=== PATIENT | male | born 1985 | race Caucasian/White ===

== ENCOUNTER 2017-01-21 17:33 | Emergency (ER) | payer MEDICAID, OTHER ==
[2017-01-21 17:55] VITALS: BP 173/89
[2017-01-21] MEDS ORDERED: HYDROcodone/ACETAMIN 5-325 MG* 1 TAB PO ONE ×2 (18:57→20:10)
[2017-01-21] MEDS ORDERED: Phenazopyridine TAB* 100 MG PO ONE (18:57)
[2017-01-21] MEDS ORDERED: Ciprofloxacin TAB* 500 MG PO ONE (19:36)
--- NOTE | 2017-01-21 19:46 | UC ---
Abdominal Pain Male HPI - HPI Summary HPI Summary: 31 y/o male with h/o kidney stone ~ 3 years ago, passed spontaneously, presents with colicy right flank pain x ~ 2 days, no feevr, chills, pain intermittent, sharp in nature, ? blood in urine today, + urinary frequency, urgency. no fever , chills. no abdominal pain. no other complaints. no meds - History of Current Complaint Chief Complaint: [facility]CGU Stated Complaint: LOWER BACK PAIN/URINARY Time Seen by Provider: 01/21/17 18:47 Hx Obtained From: Patient Onset/Duration: Sudden Onset, Lasting Days Severity Initially: Mild Severity Currently: Moderate - Allergies/Home Medications Allergies/Adverse Reactions: Allergies Allergy/AdvReac Type Severity Reaction Status Date / Time Amoxicillin Allergy Hives Verified 01/21/17 17:47 Celecoxib [From Celebrex] Allergy Anaphylatic Verified 01/21/17 17:47 Shock Ibuprofen Allergy Anaphylatic Verified 01/21/17 17:47 Shock Sulfa Antibiotics Allergy Hives Verified 01/21/17 17:47 Home Medications: Home Medications Acetaminophen TAB* [Tylenol TAB*] 650 mg PO Q4H PRN 01/21/17 [History Confirmed 01/21/17] PMH/Surg Hx/FS Hx/Imm Hx Previously Healthy: Yes - Surgical History Surgical History: Yes Surgery Procedure, Year, and Place: right hand surgery 2011 - Social History Alcohol Use: Occasionally Substance Use Type: None Smoking Status (MU): Heavy Every Day Tobacco Smoker Review of Systems Gastrointestinal: Other - right sided back pain Genitourinary: Hematuria, Frequency, Urgency Psychological: Anxious Is Patient Immunocompromised?: No All Other Systems Reviewed And Are Negative: Yes Physical Exam Triage Information Reviewed: Yes Appearance: Well-Appearing, No Pain Distress, Well-Nourished Vital Signs: Initial Vital Signs Temp 98.7 F 01/21/17 17:42 Pulse 72 01/21/17 17:42 Resp 16 01/21/17 17:42 BP 173/89 01/21/17 17:42 Pulse Ox 100 01/21/17 17:42 Vital Signs Reviewed: Yes Eyes: Positive: Conjunctiva Clear Abdomen Description: Positive: Nontender, No Organomegaly, Soft, Bruit, CVA Tenderness (R), Other: - no suprapubic tenderness. Negative: CVA Tenderness (L) , Distended, Guarding Musculoskeletal Exam: Normal Neurological Exam: Normal Psychological Exam: Normal Abd Pain Male Course/Dx - Course Course Of Treatment: CT- + small stone within kidney, no hydro, no obstruction per report, patient given pain meds, increase fluids, pyridium, flomax, follow up [facility] home if no imrpvement within 24 hours, return to ER or for fever, shills. ABX given for urine results. - Differential Dx/Clinical Impression Differential Diagnosis/HQI/PQRI: Appendicitis, Diverticulitis, Epididymitis Provider Diagnoses: UTI, nephrolithiasis, non-obstructing Discharge - Discharge Plan Condition: Fair Disposition: HOME Prescriptions: HYDROcodone/ACETAMIN 5-325 MG* [[place] 5-325 TAB*] 2 tab PO Q4H PRN #20 tab MDD 8 PRN Reason: Pain Levofloxacin TAB* [Levaquin 750 MG TAB*] 750 mg PO DAILY #4 tab Patient Education Materials: Kidney Stones (ED), Flank Pain (ED) Referrals: No Primary Care Phys,NOPCP [Primary Care Provider] - Additional Instructions: - Increase fluid intake - Medication as directed - Go to ER with fever, chills, increased pain, keyana blood in your urine
--- NOTE | 2017-01-21 20:12 | RAD ---
Indication: Right flank pain. CT of the abdomen and pelvis was performed without oral or IV contrast administration. Coronal and sagittal reconstructed images were obtained. No evidence of hydronephrosis is noted. No evidence of obstructive uropathy is noted. There is a tiny calculi in the lower pole of the right kidney which is not obstructing. Lung bases demonstrate no pleural fluid, nodules or masses. Heart is of normal size without evidence of pericardial effusion. Liver is normal in size. No focal lesions or intrahepatic ductal dilatation is noted. The gallbladder is partially contracted. Spleen is normal in size. No adrenal lesions are noted. The pancreas demonstrates no mass or pancreatic duct dilatation. Aorta and inferior vena cava are unremarkable. No retroperitoneal adenopathy is noted. CT of the pelvis demonstrates no retroperitoneal or pelvic lymphadenopathy. Urinary bladder is otherwise unremarkable. The appendix is visualized and is normal. No hernias are noted. Small bowel demonstrates no abnormal dilatation. Bony structures are grossly unremarkable. IMPRESSION: No evidence of obstructive uropathy is noted. Nonobstructing calculi lower pole right kidney. Normal appendix. No other masses or fluid collections are noted.
== END 2017-01-21 20:19 | disposition home or self-care (01) ==
LOC: UCCORT 17:33
DX: N39.0 Urinary tract infection, site not specified (principal); R31.9 Hematuria, unspecified; N20.0 Calculus of kidney; Z87.442 Personal history of urinary calculi; Z88.6 Allergy status to analgesic agent; Z88.1 Allergy status to other antibiotic agents; Z88.2 Allergy status to sulfonamides; Z88.8 Allergy status to other drugs, medicaments and biological substances; F17.210 Nicotine dependence, cigarettes, uncomplicated
CPT/HCPCS: 74176; 81003; 87086; 99203; A9270-GY; G0463

== ENCOUNTER 2017-02-18 15:59 | Emergency (ER) | payer OTHER, MEDICAID ==
[2017-02-18 16:47] VITALS: BP 147/90
--- NOTE | 2017-02-18 16:50 | UC ---
Back Pain HPI - HPI Summary HPI Summary: 31 year old male presents with lower back/tailbone pain after falling on ice. - History of Current Complaint Chief Complaint: UCBackPain Stated Complaint: LOWER BACK PAIN Time Seen by Provider: 02/18/17 16:49 Hx Obtained From: Patient Onset/Duration: Sudden Onset Timing: Constant Severity Initially: Moderate Severity Currently: Moderate Pain Scale Used: 0-10 Numeric - 8 - Allergies/Home Medications Allergies/Adverse Reactions: Allergies Allergy/AdvReac Type Severity Reaction Status Date / Time Amoxicillin Allergy Hives Verified 02/18/17 16:47 Celecoxib [From Celebrex] Allergy Anaphylatic Verified 02/18/17 16:47 Shock Ibuprofen Allergy Anaphylatic Verified 02/18/17 16:47 Shock Sulfa Antibiotics Allergy Hives Verified 02/18/17 16:47 Home Medications: Home Medications NK [No Home Medications Reported] 02/18/17 [History Confirmed 02/18/17] PMH/Surg Hx/FS Hx/Imm Hx Previously Healthy: Yes - Surgical History Surgical History: Yes Surgery Procedure, Year, and Place: right hand surgery 2011 - Family History Known Family History: Positive: None - Social History Alcohol Use: Rare Substance Use Type: None Smoking Status (MU): Heavy Every Day Tobacco Smoker Type: Cigarettes Amount Used/How Often: 1/2 ppd Review of Systems Constitutional: Negative Skin: Negative Eyes: Negative ENT: Negative Respiratory: Negative Cardiovascular: Negative Gastrointestinal: Negative Genitourinary: Negative Motor: Negative Neurovascular: Negative Musculoskeletal: Other: - lower back pain tailbone pain Neurological: Negative Psychological: Negative All Other Systems Reviewed And Are Negative: Yes Physical Exam Triage Information Reviewed: Yes Vital Signs: Initial Vital Signs Temp 36.9 C 02/18/17 16:43 Pulse 79 02/18/17 16:43 Resp 16 02/18/17 16:43 BP 147/90 02/18/17 16:43 Pulse Ox 100 02/18/17 16:43 Vital Signs Reviewed: Yes Eye Exam: Normal ENT Exam: Normal Dental Exam: Normal Neck exam: Normal Neck: Positive: 1 Respiratory Exam: Normal Cardiovascular Exam: Normal Abdominal Exam: Normal Musculoskeletal: Positive: Other: - lower back pain tailbone pain Neurological Exam: Normal Psychological Exam: Normal Skin Exam: Normal Back Pain Course/Dx - Differential Dx/Diagnosis Provider Diagnoses: lower back pain. tailbone pain Discharge - Discharge Plan Condition: Stable Disposition: HOME Patient Education Materials: Coccyx Injury (ED) Referrals: No Primary Care Phys,NOPCP [Primary Care Provider] -
--- NOTE | 2017-02-18 17:43 | RAD ---
Indication: Low back and tailbone pain post fall. Comparison: January 21, 2017 CT. Technique: AP, lateral, and oblique views lumbar sacral spine. Report: Alignment is anatomic. No cortical disruption or trabecular impaction to indicate a vertebral body fracture. Oblique views without evidence for spondylolysis. Moderate L5-S1 disc space narrowing without significant change. The remaining disc spaces are normal. Unremarkable soft tissue contours. IMPRESSION: Negative for lumbar sacral spine or coccyx fracture or malalignment. L5-S1 degenerative spondylosis.
== END 2017-02-18 18:09 | disposition home or self-care (01) ==
LOC: UCCORT 15:59
DX: M54.5 Low back pain (principal); M53.3 Sacrococcygeal disorders, not elsewhere classified; Z88.6 Allergy status to analgesic agent; Z88.1 Allergy status to other antibiotic agents; Z88.2 Allergy status to sulfonamides; F17.210 Nicotine dependence, cigarettes, uncomplicated
CPT/HCPCS: 72110; 99212; G0463